=== PATIENT | female | born 1975 | race Caucasian/White ===

== ENCOUNTER 2018-06-21 19:09 | Emergency (ER) | payer SELFPAY, MEDICAID | END 2018-06-21 23:37 | disposition home or self-care (01) | LOC: FTE 19:09 | DX: S92.335A Nondisplaced fracture of third metatarsal bone, left foot, initial encounter for closed fracture (principal); S92.345A Nondisplaced fracture of fourth metatarsal bone, left foot, initial encounter for closed fracture; V49.49XA Driver injured in collision with other motor vehicles in traffic accident, initial encounter | CPT/HCPCS: 73630; 73630-LT; 99283-25 ==